=== PATIENT | male | born 1955 | race Caucasian/White ===

== ENCOUNTER 2016-03-27 23:05 | Inpatient (IN) | payer MEDICARE, MEDICAID ==
[~2016-03-27] VITALS: Ht 152.4 cm; Wt 71.4 kg
[2016-03-27] MEDS ORDERED: ACETAMINOPHEN 325 MG TAB ONE (23:25)
[2016-03-28] MEDS ORDERED: SODIUM CHLORIDE 0.9% 2,000 ML ONE (00:14)
[2016-03-28] MEDS ORDERED: SODIUM CHLORIDE 0.9% 100 ML IV ONE (00:35)
[2016-03-28] MEDS ORDERED: PIPER/TAZO 3.375 GM PYXIS ONE (00:35)
[2016-03-28] MEDS ORDERED: VANCOMYCIN 1,250 MG in SODIUM CHLORIDE 0.9% 250 ML IV ONE (00:40)
[2016-03-28] MEDS ORDERED: SODIUM CHLORIDE 0.9% 1,000 ML ONE (01:41)
[2016-03-28] MEDS ORDERED: PHARMACY TO DOSE VANCOMYCIN IV SCH (03:10)
[2016-03-28] MEDS ORDERED: ONDANSETRON 4 MG VIAL IV PUSH PRN (03:10)
[2016-03-28] MEDS ORDERED: PHARMACY TO DOSE IV SCH ×2 (03:10)
[2016-03-28] MEDS ORDERED: SALINE FLUSH 10 ML FLUSH PRN (03:10)
[2016-03-28 04:30] VITALS: BP_SYST 104; BP_SYST 88; RESP 16; TEMP 98.8
[2016-03-28] MEDS: SODIUM CHLORIDE 0.9% 1,000 ML IV SCH (04:46)
[2016-03-28] MEDS: SODIUM CHLORIDE 0.9% FLUSH BAG 500 ML IV SCH (05:00)
[2016-03-28 05:02] VITALS: BMI 29.7
[2016-03-28] MEDS: PIPERACIL/TAZO 4.5GM/100ML 100 ML IV SCH ×4 (06:05→21:54)
[2016-03-28 07:37] VITALS: BP_SYST 120; RESP 18; TEMP 97.5
[2016-03-28] MEDS: SALINE FLUSH 10 ML FLUSH SCH ×2 (08:00→21:59)
[2016-03-28 11:06] VITALS: BP_SYST 122; RESP 18; TEMP 97.5
[2016-03-28] MEDS: VANCOMYCIN 1,250 MG in SODIUM CHLORIDE 0.9% 250 ML IV SCH (12:42)
[2016-03-28 15:49] VITALS: BP_SYST 100; RESP 16; TEMP 97.6
[2016-03-28 19:38] VITALS: BP_SYST 108; RESP 18; TEMP 98
[2016-03-28] MEDS ORDERED: TRAZODONE 50 MG TAB PO PRN (20:05)
[2016-03-28] MEDS: DOCUSATE SOD 100 MG CAP PO SCH (21:57)
[2016-03-28] MEDS: ALPRAZOLAM 1 MG TAB PO SCH (21:58)
[2016-03-28] MEDS: TAMSULOSIN 0.4 MG CAP PO SCH (21:58)
[2016-03-28] MEDS: SACCHA BOULARDII 250MG CAP PO SCH (21:58)
[2016-03-28] MEDS: OXYBUTYNIN XL 5 MG TAB PO SCH (21:58)
[2016-03-28 23:12] VITALS: BP_SYST 90; RESP 18; TEMP 98.3
[2016-03-29] MEDS: VANCOMYCIN 1,250 MG in SODIUM CHLORIDE 0.9% 250 ML IV SCH ×2 (00:51→12:37)
[2016-03-29] MEDS: SODIUM CHLORIDE 0.9% FLUSH BAG 500 ML IV SCH (00:55)
[2016-03-29 04:05] VITALS: BP_SYST 110; RESP 20; TEMP 98.4
[2016-03-29] MEDS: PIPERACIL/TAZO 4.5GM/100ML 100 ML IV SCH ×4 (06:44→23:57)
[2016-03-29] MEDS: LEVOTHYROXINE 0.125 MG TAB PO SCH (06:44)
[2016-03-29 08:06] VITALS: BP_SYST 118; RESP 18; TEMP 97.8
[2016-03-29] MEDS: ALPRAZOLAM 1 MG TAB PO SCH ×2 (08:19→20:22)
[2016-03-29] MEDS: SACCHA BOULARDII 250MG CAP PO SCH ×3 (08:19→20:22)
[2016-03-29] MEDS: DONEPEZIL 10 MG TABLET PO SCH (08:19)
[2016-03-29] MEDS: SALINE FLUSH 10 ML FLUSH SCH ×2 (08:19→20:21)
[2016-03-29 11:40] VITALS: BP_SYST 120; RESP 20; TEMP 97.2
[2016-03-29 11:57] VITALS: Ht 152.4 cm; Wt 71.4 kg
[2016-03-29] MEDS: SODIUM CHLORIDE 0.9% 1,000 ML IV SCH (12:45)
[2016-03-29 16:08] VITALS: BP_SYST 118; RESP 20; TEMP 96.2
[2016-03-29 19:37] VITALS: BP_SYST 136; RESP 20; TEMP 96.2
[2016-03-29] MEDS: DOCUSATE SOD 100 MG CAP PO SCH (20:22)
[2016-03-29] MEDS: OXYBUTYNIN XL 5 MG TAB PO SCH (20:22)
[2016-03-29] MEDS: TAMSULOSIN 0.4 MG CAP PO SCH (20:22)
[2016-03-29 23:21] VITALS: BP_SYST 116; RESP 18; TEMP 96.7
[2016-03-30] MEDS: VANCOMYCIN 1,250 MG in SODIUM CHLORIDE 0.9% 250 ML IV SCH ×3 (01:03→23:52)
[2016-03-30] MEDS: SODIUM CHLORIDE 0.9% 1,000 ML IV SCH ×3 (01:03→23:51)
[2016-03-30 03:52] VITALS: BP_SYST 140; RESP 18; TEMP 100.1
[2016-03-30] MEDS: ACETAMINOPHEN 325 MG TAB PO PRN ×3 (04:23→23:58)
[2016-03-30] MEDS: SODIUM CHLORIDE 0.9% FLUSH BAG 500 ML IV SCH (05:17)
[2016-03-30] MEDS: LEVOTHYROXINE 0.125 MG TAB PO SCH (06:33)
[2016-03-30] MEDS: PIPERACIL/TAZO 4.5GM/100ML 100 ML IV SCH ×4 (06:33→23:52)
[2016-03-30 07:49] VITALS: BP_SYST 112; RESP 16; TEMP 96
[2016-03-30] MEDS: SALINE FLUSH 10 ML FLUSH SCH ×2 (08:43→19:47)
[2016-03-30] MEDS: DONEPEZIL 10 MG TABLET PO SCH (08:43)
[2016-03-30] MEDS: ALPRAZOLAM 1 MG TAB PO SCH ×2 (08:43→19:47)
[2016-03-30] MEDS: SACCHA BOULARDII 250MG CAP PO SCH ×3 (08:43→19:47)
[2016-03-30 10:52] VITALS: BP_SYST 130; RESP 16; TEMP 96.3
[2016-03-30] MEDS: DUONEB INH SCH ×4 (11:00→23:01)
[2016-03-30] MEDS ORDERED: MISSING DOSE XX ONE (13:40)
[2016-03-30 15:03] VITALS: RESP 16
[2016-03-30 15:30] VITALS: BP_SYST 122; RESP 18; TEMP 96.2
[2016-03-30] MEDS: DOCUSATE SOD 100 MG CAP PO SCH (19:03)
[2016-03-30] MEDS: OXYBUTYNIN XL 5 MG TAB PO SCH (19:47)
[2016-03-30] MEDS: TAMSULOSIN 0.4 MG CAP PO SCH (19:47)
[2016-03-30 20:05] VITALS: BP_SYST 124; RESP 18; TEMP 96.4
[2016-03-31 00:05] VITALS: BP_SYST 112; RESP 18; TEMP 96.4
[2016-03-31] MEDS: DUONEB INH SCH ×6 (02:59→23:16)
[2016-03-31] MEDS: SODIUM CHLORIDE 0.9% FLUSH BAG 500 ML IV SCH (04:25)
[2016-03-31] MEDS: LEVOTHYROXINE 0.125 MG TAB PO SCH (06:24)
[2016-03-31] MEDS: PIPERACIL/TAZO 4.5GM/100ML 100 ML IV SCH ×3 (06:24→18:33)
[2016-03-31] MEDS: ALPRAZOLAM 1 MG TAB PO SCH ×2 (09:00→20:54)
[2016-03-31] MEDS: DONEPEZIL 10 MG TABLET PO SCH (10:49)
[2016-03-31] MEDS: SACCHA BOULARDII 250MG CAP PO SCH ×3 (10:50→20:53)
[2016-03-31] MEDS: SALINE FLUSH 10 ML FLUSH SCH ×2 (10:50→20:53)
[2016-03-31 11:37] VITALS: BP_SYST 120; RESP 18; TEMP 96.6
[2016-03-31] MEDS: VANCOMYCIN 1,250 MG in SODIUM CHLORIDE 0.9% 250 ML IV SCH (13:07)
[2016-03-31] MEDS: POTASSIUM CHLORIDE PREMIX 50 ML IV SCH ×4 (14:42→20:52)
[2016-03-31 15:36] VITALS: BP_SYST 114; RESP 18; TEMP 97
[2016-03-31] MEDS: ENOXAPARIN 40 MG/0.4 ML SYR SUBQ SCH (15:52)
[2016-03-31] MEDS: SODIUM CHLORIDE 0.9% 1,000 ML IV SCH (18:35)
[2016-03-31 20:43] VITALS: BP_SYST 118; RESP 20; TEMP 96.7
[2016-03-31] MEDS: OXYBUTYNIN XL 5 MG TAB PO SCH (20:53)
[2016-03-31] MEDS: DOCUSATE SOD 100 MG CAP PO SCH (20:54)
[2016-03-31] MEDS: TAMSULOSIN 0.4 MG CAP PO SCH (20:54)
[2016-03-31] MEDS: ACETAMINOPHEN 325 MG TAB PO PRN (20:54)
[2016-04-01] MEDS: PIPERACIL/TAZO 4.5GM/100ML 100 ML IV SCH ×4 (00:02→17:09)
[2016-04-01 00:12] VITALS: BP_SYST 112; RESP 18; TEMP 96.5
[2016-04-01] MEDS: VANCOMYCIN 1,250 MG in SODIUM CHLORIDE 0.9% 250 ML IV SCH ×2 (00:51→13:06)
[2016-04-01] MEDS: DUONEB INH SCH ×6 (03:07→23:03)
[2016-04-01 03:32] VITALS: BP_SYST 104; RESP 20; TEMP 96.5
[2016-04-01] MEDS: SODIUM CHLORIDE 0.9% FLUSH BAG 500 ML IV SCH (06:11)
[2016-04-01] MEDS: LEVOTHYROXINE 0.125 MG TAB PO SCH (06:12)
[2016-04-01 08:42] VITALS: BP_SYST 112; RESP 20; TEMP 97.1
[2016-04-01] MEDS: SACCHA BOULARDII 250MG CAP PO SCH ×3 (09:22→21:57)
[2016-04-01] MEDS: DONEPEZIL 10 MG TABLET PO SCH (09:22)
[2016-04-01] MEDS: ALPRAZOLAM 1 MG TAB PO SCH ×2 (09:23→22:00)
[2016-04-01] MEDS: SALINE FLUSH 10 ML FLUSH SCH ×2 (09:23→21:58)
[2016-04-01 11:53] VITALS: BP_SYST 114; RESP 18; TEMP 97.4
[2016-04-01 16:24] VITALS: BP_SYST 110; RESP 16; TEMP 96.2
[2016-04-01] MEDS: ENOXAPARIN 40 MG/0.4 ML SYR SUBQ SCH (17:09)
[2016-04-01 21:12] VITALS: BP_SYST 113; RESP 18; TEMP 96.5
[2016-04-01] MEDS: TAMSULOSIN 0.4 MG CAP PO SCH (21:57)
[2016-04-01] MEDS: OXYBUTYNIN XL 5 MG TAB PO SCH (21:57)
[2016-04-01] MEDS: DOCUSATE SOD 100 MG CAP PO SCH (21:58)
[2016-04-02] MEDS: PIPERACIL/TAZO 4.5GM/100ML 100 ML IV SCH ×4 (00:05→17:26)
[2016-04-02 00:24] VITALS: BP_SYST 118; RESP 18; TEMP 97.6
[2016-04-02] MEDS: VANCOMYCIN 1,250 MG in SODIUM CHLORIDE 0.9% 250 ML IV SCH ×2 (01:00→15:20)
[2016-04-02] MEDS: DUONEB INH SCH ×5 (02:28→18:58)
[2016-04-02] MEDS: LEVOTHYROXINE 0.125 MG TAB PO SCH (07:00)
[2016-04-02] MEDS: SODIUM CHLORIDE 0.9% FLUSH BAG 500 ML IV SCH (07:31)
[2016-04-02 08:14] VITALS: BP_SYST 116; RESP 18; TEMP 97.4
[2016-04-02] MEDS: DONEPEZIL 10 MG TABLET PO SCH (09:35)
[2016-04-02] MEDS: ALPRAZOLAM 1 MG TAB PO SCH (09:35)
[2016-04-02] MEDS: SACCHA BOULARDII 250MG CAP PO SCH ×2 (09:35→16:05)
[2016-04-02] MEDS: SALINE FLUSH 10 ML FLUSH SCH (09:35)
[2016-04-02 11:00] VITALS: BP_SYST 114; RESP 18; TEMP 97.1
[2016-04-02 15:26] VITALS: BP_SYST 122; RESP 18
[2016-04-02] MEDS: ENOXAPARIN 40 MG/0.4 ML SYR SUBQ SCH (16:05)
[2016-04-02 18:20] VITALS: BP_SYST 122; RESP 18; TEMP 97.1
[2016-04-02 20:47] VITALS: BP_SYST 114; RESP 18; TEMP 96.9
[2016-04-03] MEDS ORDERED: VANCOMYCIN 1,250 MG in SODIUM CHLORIDE 0.9% 250 ML IV SCH (03:00)
== END 2016-04-02 21:19 | disposition home health service (06) | DRG 871 ==
LOC: ENRESERVTM → ENRESERVDT → ER 23:05 → ENPENDDIS 03-28 00:48 → DELPENDDIS 03-28 00:48 → EMR 03-28 00:48 → 4THE 03-28 03:52
PROVIDERS: ADMIT Family Medicine; ATTEND Family Medicine
DX: A41.9 Sepsis, unspecified organism (principal); R65.21 Severe sepsis with septic shock; J69.0 Pneumonitis due to inhalation of food and vomit; E87.6 Hypokalemia; Q90.9 Down syndrome, unspecified; Z93.1 Gastrostomy status; Z85.850 Personal history of malignant neoplasm of thyroid; R13.10 Dysphagia, unspecified; K22.5 Diverticulum of esophagus, acquired; E89.0 Postprocedural hypothyroidism; E66.9 Obesity, unspecified; Z68.30 Body mass index [BMI] 30.0-30.9, adult
CPT/HCPCS: 36415; 36600; 71010; 80053; 80202; 81003; 82803; 82947; 83605; 83735; 84145; 85025; 85610; 87040; 87088; 87278; 87299; 87804; 94640; 94799; 96360; 96361; 96365; 96367; 99222; 99232; 99239